=== PATIENT | male | born 1970 | race Caucasian/White ===

== ENCOUNTER 2019-01-16 10:00 | Day surgery (SDC) | payer OTHER ==
[2019-01-16] MEDS ORDERED: ASPIRIN EC 325 MG TAB PO ONE ×2 (10:03→10:19)
[2019-01-16] MEDS ORDERED: DIAZEPAM 5 MG TAB PO ONE (10:03)
[2019-01-16] MEDS ORDERED: NS 1,000 ML IV ONE (10:03)
[2019-01-16] MEDS ORDERED: FAMOTIDINE 20 MG TAB PO ONE (10:03)
[2019-01-16] MEDS ORDERED: diphenhydrAMINE 25 MG CAP PO ONE ×2 (10:03→10:19)
[2019-01-16] MEDS ORDERED: FAMOTIDINE 20 MG TAB ONE (10:19)
[2019-01-16] MEDS ORDERED: DIAZEPAM 5 MG TAB ONE (10:19)
[2019-01-16] MEDS ORDERED: fentaNYL 100 MCG/2 ML INJ ONE (10:27)
[2019-01-16] MEDS ORDERED: MIDAZOLAM 2 MG/2 ML VIAL ONE ×2 (10:27→12:18)
[2019-01-16] MEDS ORDERED: LIDOCAINE 1% 300 MG/30 ML SDV ONE (10:27)
[2019-01-16] MEDS ORDERED: IOPAMIDOL (ISOVUE-370) 150 ML BTL IV ONE (10:27)
[2019-01-16 10:43] LABS: PLATELET COUNT 202 10^3/uL (150-400)
[2019-01-16 10:52] LABS: INR 0.97 (0.83-1.16); PROTIME(PATIENT) 12.5 SEC (12.0-15.0)
--- NOTE | 2019-01-16 11:24 | PDHPUP ---
History & Physical Update H&P update statement: This history and physical update is based on an assessment of the patient which was completed after admission or registration (within 24 hours), but prior to the surgery/procedure. Risks and Benefits of LHC discussed in detail. Pt agreeable to pursue. No contra indication for DAPT. No hx of ASA allergy. No hx of PUD or GI bleeding. H&P update: H&P reviewed & patient examined, no change in patient's condition since H&P completed
--- NOTE | 2019-01-16 11:24 | PDPROPOC ---
Sedation Plan of Care Sedation Plan of Care: mental status noted, patient educated of risks, benefits , alternatives, patient can tolerate sedation ASA Classification: ASA 2 Planned drugs: fentanyl, midazolam Mallampati Score: Class 2 Mallampati Reference Image: Patient passed 3-3-2 rule?: Yes
[2019-01-16] MEDS ORDERED: ATROPINE SULFATE 1 MG/10 ML SYR IVP PRN (13:00)
[2019-01-16] MEDS ORDERED: HYDROCODONE/APAP 5/325 TAB PO PRN (13:00)
[2019-01-16] MEDS ORDERED: ONDANSETRON 4 MG/2 ML VIAL IVP PRN (13:00)
[2019-01-16] MEDS ORDERED: OXYCODONE/APAP 5/325 TAB PO PRN (13:00)
--- NOTE | 2019-01-16 13:38 | CPIP ---
[f rep st] INVASIVE CARDIAC PROCEDURE DATE OF PROCEDURE: 01/16/2019 PROCEDURE PERFORMED: Left heart catheterization. INDICATION FOR PROCEDURE: Patient with exertional shortness of breath, dyspnea on exertion, and ches t discomfort coupled with abnormal exercise treadmill stress test with reproduction of symptoms. PROCEDURE: After informed consent was obtained for left heart catheterization and possible intervent ion, patient was brought to the cardiac catheterization lab where he was prepped and draped in a ster ile fashion. Using 1% lidocaine, the right groin was anesthetized. Attempts to cannulate the right common femoral artery were unsuccessful. Arterial flow had been accessed but unable to thread cathet er. Secondarily, left groin access was obtained via the modified Seldinger technique. This was unde r the assistance of Dr. Savage Demarco. A 6-Jordanian catheter was placed in the left femoral artery witho ut complications. JL4 catheter was used to take images of the left coronary anatomy in multiple proj ections. JL4 catheter was exchanged over a guidewire for JR4 catheter. JR4 catheter was used to delroy e images of the right coronary artery in multiple projections. JR4 catheter was exchanged over a christina dewire for angled pigtail catheter. Angled pigtail catheter was used to cross the aortic valve. Lef t ventriculogram was performed. LVEDP was assessed. Aortic valve gradient was assessed on pull-back . Angled pigtail catheter was removed over a guidewire. Left common femoral artery angiography was obtained demonstrating appropriate placement of the 6-Jordanian sheath and appropriate for Angio-Seal de ployment. FINDINGS: 1. Left main: Normal size and caliber. Bifurcates into left anterior descending and left circumfle x coronary artery. There is no evidence of coronary disease within the left main. 2. Left anterior descending coronary artery is free of coronary artery disease. There is a large 1s t septal and moderate-sized 1st diagonal branch. There is no evidence of coronary disease within the LAD or branch vessels. 3. Left circumflex vessel is a nondominant vessel. There is a large 1st obtuse marginal branch. Th ere is no evidence of coronary disease within the circumflex vessel or obtuse marginal branch. 4. Right coronary artery is a dominant vessel that bifurcates into PDA and PLV branch. There are mi ld luminal irregularities consistent with nonflow-limiting coronary disease from the proximal to midp ortion of the dominant right coronary artery. No flow-limiting coronary disease. HEMODYNAMICS: LVEF 55% to 60%. LVEDP 20 mmHg. Aortic valve gradient: None. CONCLUSION: 1. Mild nonobstructive coronary disease within the proximal to mid right coronary artery. 2. Normal left main, left anterior descending, and circumflex vessel. 3. Normal left ventricular function with left ventricular ejection fraction of 55% to 60%. 4. Mildly elevated left ventricular end-diastolic pressure of 20 mmHg. PLAN: 1. Recommend initiating statin therapy with goal LDL less than 70 in the setting of mild luminal irr egularities in the right coronary artery. 2. Recommend monitoring blood pressure at home for 2 weeks prior to followup appointment. 3. We will review images with Dr. Demarco, his primary social work manager, for further testing in the setti ng of exertional symptoms in the absence of flow-limiting coronary artery disease. /[id number]/MODL
--- NOTE | 2019-01-17 11:48 | CPEKG ---
Test Reason : OPEN Blood Pressure : / mmHG Vent. Rate : 076 BPM Atrial Rate : 076 BPM P-R Int : 138 ms QRS Dur : 097 ms QT Int : 362 ms P-R-T Axes : 041 018 017 degrees QTc Int : 408 ms Sinus rhythm Confirmed by Savage Rsamussen ([id number]) on 01/17/2019 11:48:19 AM Referred By: Liban Nesbitt Confirmed By:Savage Rasmussen
== END 2019-01-16 17:07 | disposition home or self-care (01) ==
LOC: FCATH 10:00
PROVIDERS: ATTEND Internal Medicine Cardiovascular Disease
DX: I25.10 Atherosclerotic heart disease of native coronary artery without angina pectoris (principal); K21.9 Gastro-esophageal reflux disease without esophagitis
CPT/HCPCS: C1760; J1644; J2250; J3010; Q9967